=== PATIENT | male | born 1980 | race Caucasian/White ===

== ENCOUNTER 2016-10-26 04:08 | Emergency (ER) | payer OTHER ==
[2016-10-26] MEDS ORDERED: ceFAZolin 1 GM Vial IM ONE (04:17)
[2016-10-26] MEDS ORDERED: Bacitracin Oint 1 GM U/D Packet TOP ONE (04:18)
[2016-10-26] MEDS ORDERED: Lidocaine 1% 20 ML MDV INJECT ONE (04:19)
--- NOTE | 2016-10-26 05:39 | EDM.PDOC ---
ED HPI GENERAL MEDICAL PROBLEM - General Chief Complaint: Laceration Stated Complaint: CUT LEFT HAND MIDDLE FINGER Time Seen by Provider: 10/26/16 05:35 - History of Present Illness INITIAL COMMENTS - FREE TEXT/NARRATIVE: HISTORY AND PHYSICAL: History of present illness: Patient 36-year-old white male transferred to an acute injury to third digit left hand that occurred at work this is in the form of a crush injury which he sustained a laceration Review of systems: As per history of present illness and below otherwise all systems reviewed and negative. Past medical history: As per history of present illness and as reviewed below otherwise noncontributory. Surgical history: As per history of present illness and as reviewed below otherwise noncontributory. Social history: No reported history of drug or alcohol abuse. Family history: As per history of present illness and as reviewed below otherwise noncontributory. Physical exam: HEENT: Atraumatic, normocephalic, pupils reactive, negative for conjunctival pallor or scleral icterus, mucous membranes moist, throat clear, neck supple, nontender, trachea midline. Lungs: Clear to auscultation, breath sounds equal bilaterally, chest nontender. Heart: S1S2, regular, negative for clicks, rubs, or JVD. Abdomen: Soft, nondistended, nontender. Negative for masses or hepatosplenomegaly. Negative for costovertebral tenderness. Pelvis: Stable nontender. Genitourinary: Deferred. Rectal: Deferred. Extremities: Patient has approximately a 2.5 cm moderate laceration to the volar aspect of the distal third of the third digit of his left hand neurovascular exam CMS is unremarkable Neuro: Awake, alert, oriented. Cranial nerves II through XII unremarkable. Cerebellum unremarkable. Motor and sensory unremarkable throughout. Exam nonfocal. Diagnostics: X-ray left hand Therapeutics: Patient was anesthetized 1% lidocaine without epinephrine irrigated with copious amounts 0.9 normal saline prepped and draped in a sterile manner and closed with 3-0 nylon interrupted suture tube gauze bacitracin and aluminum foam splint was applied Impression: #1 acute injury third digit left hand with comminuted tuft fracture/laceration Definitive disposition and diagnosis as appropriate pending reevaluation and review of above. Left 3-Middle finger Pain Score (Numeric/FACES): 2 - Related Data Allergies Allergy/AdvReac Type Severity Reaction Status Date / Time No Known Allergies Allergy Verified 10/26/16 04:17 Home Meds: Home Meds . [No Known Home Meds] 10/26/16 [History] Past Medical History - Infectious Disease History Infectious Disease History: Reports: Chicken Pox - Past Surgical History Musculoskeletal Surgical History: Reports: Shoulder Surgery Dermatological Surgical History: Reports: Plastic Surgical Reconstruction/Repair Social & Family History - Family History Family Medical History: Noncontributory - Tobacco Use Years of Tobacco use: 10 Packs/Tins Daily: 1 - Caffeine Use Caffeine Use: Reports: Coffee, Energy Drinks, Soda Caffeine Use Comment: 1-3 daily - Recreational Drug Use Recreational Drug Use: No ED ROS GENERAL - Review of Systems Review Of Systems: ROS reveals no pertinent complaints other than HPI. ED EXAM, SKIN/RASH Exam: See Below (See dictation) Course - Vital Signs Last Recorded V/S: Last Vital Signs Temp 36.7 C 10/26/16 04:17 Pulse 84 10/26/16 04:17 Resp 16 10/26/16 04:17 BP 135/90 10/26/16 04:17 Pulse Ox 96 10/26/16 04:17 - Orders/Labs/Meds Orders: Active Orders 24 hr Category Date Time Status Hand Comp Min 3V Lt [CR] Stat Exams 10/26/16 04:17 Taken Meds: Medications Discontinued Medications Generic Name Dose Route Start Last Admin Trade Name Ruthie PRN Reason Stop Dose Admin Bacitracin 1 dose 10/26/16 04:18 10/26/16 04:29 Bacitracin Oint 1 Gm TOP 10/26/16 04:19 1 dose ONETIME ONE Administration Cefazolin Sodium 1 gm 10/26/16 04:17 10/26/16 04:30 Ancef IM 10/26/16 04:18 1 gm ONETIME ONE Administration Lidocaine HCl 20 ml 10/26/16 04:19 10/26/16 04:30 Xylocaine 1% INJECT 10/26/16 04:20 20 ml ONETIME ONE Administration Departure - Departure Time of Disposition: 05:37 Disposition: Home, Self-Care 01 Condition: good Clinical Impression: Finger fracture, Laceration - Discharge Information Forms: ED Department Discharge Additional Instructions: The following information is given to patients seen in the emergency department who are being discharged to home. This information is to outline your options for follow-up care. We provide all patients seen in our emergency department with a follow-up referral. The need for follow-up, as well as the timing and circumstances, are variable depending upon the specifics of your emergency department visit. If you don't have a primary care physician on staff, we will provide you with a referral. We always advise you to contact your personal physician following an emergency department visit to inform them of the circumstance of the visit and for follow-up with them and/or the need for any referrals to a consulting specialist. The emergency department will also refer you to a specialist when appropriate. This referral assures that you have the opportunity for followup care with a specialist. All of these measure are taken in an effort to provide you with optimal care, which includes your followup. Under all circumstances we always encourage you to contact your private physician who remains a resource for coordinating your care. When calling for followup care, please make the office aware that this follow-up is from your recent emergency room visit. If for any reason you are refused follow-up, please contact the [facility] emergency department at and asked to speak to the emergency department charge nurse. [facility] specialty clinic-Plastics [address] [place] [phone] Keflex as prescribed splint as directed followup hand surgery as discussed suture removal 10-14 days return as needed as discussed - My Orders Last 24 Hours: My Active Orders 10/26/16 04:17 Hand Comp Min 3V Lt [CR] Stat - Assessment/Plan Last 24 Hours: My Active Orders 10/26/16 04:17 Hand Comp Min 3V Lt [CR] Stat
[2016-10-26 06:05] VITALS: BP 126/83
--- NOTE | 2016-10-26 17:02 | CR ---
EXAM DATE: 10/26/16 PATIENT'S AGE: 36 Patient: RASHEED WALKER Facility: [place], [place] Site . Site : 1980 Study: XRay Extremity Left Hand [id number]/22/2017 4:52:26 AM Ordering Physician: Doctor De Souza Final Report: INDICATION: smashed distal 3rd digit TECHNIQUE: Hand radiograph 3 views left COMPARISON: None FINDINGS: Bones: Alignment is normal. There is a comminuted fracture of the 3rd distal phalangeal tuft noted. Joint spaces: The carpal and metacarpal-phalangeal joints are unremarkable in appearance. The interphalangeal joints are normal in appearance. Soft tissues: Unremarkable. No radiopaque foreign bodies are noted. IMPRESSION: 1. There is a comminuted fracture of the 3rd distal phalangeal tuft noted. Dictated by Errol Brenenr MD @ 10/26/2016 4:53:37 AM Dictated by: Errol Brenner MD @ 10/26/2016 04:53:39 (Electronic Signature) Report Signed by Proxy. [facility] MED[facility] CENTERAimee
== END 2016-10-26 06:00 | disposition home or self-care (01) ==
LOC: MW.ED 04:08
DX: S62.633A Displaced fracture of distal phalanx of left middle finger, initial encounter for closed fracture (principal); S61.213A Laceration without foreign body of left middle finger without damage to nail, initial encounter; W23.1XXA Caught, crushed, jammed, or pinched between stationary objects, initial encounter
CPT/HCPCS: 12001; 73130; 96372; 99283; J0690